=== PATIENT | male | born 1975 | race Caucasian/White ===

== ENCOUNTER 2020-01-16 21:48 | Emergency (ER) | payer MEDICARE, OTHER ==
[2020-01-16] MEDS ORDERED: OXYCODONE-ACETAMINOPHEN 5-325 MG TABLET PO ONE (22:10)
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
[2020-01-17] MEDS ORDERED: OXYCODONE-ACETAMINOPHEN 5-325 MG TABLET PO ONE (00:09)
[2020-01-17] MEDS ORDERED: HYDROCODONE/ACETAMINOPHEN 5-325 MG (6 TAB/ER DISP) PO PRN (00:10)
[2020-01-17 00:23] VITALS: BP 116/78
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
== END 2020-01-17 00:27 | disposition home or self-care (01) ==
LOC: ER 21:48
DX: S22.31XA Fracture of one rib, right side, initial encounter for closed fracture (principal); M54.6 Pain in thoracic spine; M25.511 Pain in right shoulder; R07.89 Other chest pain; V29.88XA Motorcycle rider (driver) (passenger) injured in other specified transport accidents, initial encounter; Y93.79 Activity, other specified sports and athletics
CPT/HCPCS: 99283; 71101; 73030; A9270 ×3

== ENCOUNTER 2020-05-15 12:02 | Emergency (ER) | payer MEDICARE, OTHER ==
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
[2020-05-15] MEDS ORDERED: IBUPROFEN 600 MG TABLET PO ONE (12:28)
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
[2020-05-15 14:29] VITALS: BP 136/76
== END 2020-05-15 14:20 | disposition home or self-care (01) ==
LOC: ER 12:02
DX: S40.012A Contusion of left shoulder, initial encounter (principal); S00.93XA Contusion of unspecified part of head, initial encounter; M25.511 Pain in right shoulder; M54.2 Cervicalgia; V86.96XA Unspecified occupant of dirt bike or motor/cross bike injured in nontraffic accident, initial encounter; H53.8 Other visual disturbances; G56.00 Carpal tunnel syndrome, unspecified upper limb; Z79.899 Other long term (current) drug therapy; Z79.1 Long term (current) use of non-steroidal anti-inflammatories (NSAID)
CPT/HCPCS: 99284; 73030; 70450; A9270